=== PATIENT | female | born 1935 | race Caucasian/White ===

== ENCOUNTER 2023-06-04 15:24 | Inpatient (IN) | payer MEDICARE, SELFPAY ==
[2023-06-04] VITALS (26 sets, daily range): BP systolic 159–232; BP diastolic 73–117; PULSE 90–113; RESP 18–33; TEMP 36.8–36.9; O2SAT 90–100; BMI 15.0
--- NOTE | ~2023-06-04 | XR_ITS ---
EXAMINATION: XR chest 1V portable DATE: 06/08/2023 08:21 INDICATION: Shortness of breath TECHNIQUE: frontal view of the chest was obtained. COMPARISON: Chest radiograph and CT dated 06/04/2023 FINDINGS: Hyperexpansion of lungs consistent with emphysema better appreciated on prior CT . Increased intersti tial pattern with subtle peripheral Pal B-lines in the lower lung zones consistent with mild pulmo nary edema. Hazy opacities at the bilateral lung bases with blunted costophrenic angles consistent wi th small bilateral pleural effusions. There are few scattered small calcified pulmonary nodules consi stent with old granulomatous disease. No pneumothorax. The cardiomediastinal silhouette is normal. IMPRESSION: 1. Emphysema with superimposed mild pulmonary edema in the lower lungs and small bilateral pleural ef fusions. Reviewed, dictated and finalized at location A. IMPRESSION: 1. Emphysema with superimposed mild pulmonary edema in the lower lungs and smal l bilateral pleural effusions.
--- NOTE | ~2023-06-04 | XR_ITS ---
EXAMINATION: XR chest 1V portable DATE: 06/04/2023 16:37 INDICATION: Shortness of breath. TECHNIQUE: A single frontal view of the chest was obtained. COMPARISON: None. FINDINGS: Calcified pulmonary nodules and calcified hilar and mediastinal lymph nodes are consistent with old granulomatous disease. No pleural effusion or pneumothorax. The heart size is normal. IMPRESSION: 1. No acute cardiopulmonary disease. Reviewed, dictated and finalized at location E.
--- NOTE | ~2023-06-04 | CT_ITS ---
EXAMINATION: CT brain wo con DATE: 06/04/2023 20:45 INDICATION: Altered mental status. TECHNIQUE: Computed tomography (CT) of the head was performed without intravenous contrast. The mA wa s adjusted according to patient size. Iterative reconstruction technique was employed. The dose-lengt h product was 605.33 mGy-cm. COMPARISON: None FINDINGS: There are scattered areas of low attenuation in the cerebral white matter. There is no intr acranial hemorrhage, acute infarction, or abnormal intracranial mass lesion. The ventricles are dre l in size. There is mucosal thickening in right sphenoid sinus. There are likely changes of ocular le ns replacement surgeries. The mastoid air cells are normal. IMPRESSION: 1. Moderate nonspecific cerebral white matter disease, which likely represents chronic small vessel i schemic disease. Reviewed, dictated and finalized at location E. IMPRESSION: 1. Moderate nonspecific cerebral white matter disease, which likely represents chronic small vessel ischemic disease.
--- NOTE | ~2023-06-04 | CT_ITS ---
EXAMINATION: CTA chest PE protocol DATE: 06/04/2023 20:46 INDICATION: Shortness of breath. TECHNIQUE: Computed tomography angiography (CTA) of the chest was performed with 100 mL Omnipaque-350 intravenous contrast timed to evaluate the pulmonary arteries. Coronal maximum intensity projection 3D-reconstructions were created by the technologist. Automated exposure control and iterative reconst ruction technique were employed. The dose-length product was 156.00 mGy-cm. COMPARISON: None. FINDINGS: There is mild scarring at the lung apices. There is mild emphysema. There is mild atelectas is bilaterally. There are small bilateral posterior diaphragmatic hernias containing fat. Calcified p ulmonary nodules and calcified hilar and mediastinal lymph nodes are consistent with old granulomatou s disease. No pleural effusion. The heart size is normal. There are coronary artery calcifications. N o pericardial effusion. There is no pulmonary embolus. Aortic atherosclerosis is noted. There is mild thoracic spondylosis. There is mild chronic anterior wedging of 2 midthoracic vertebral bodies. IMPRESSION: 1. No pulmonary embolus. 2. Mild emphysema. Reviewed, dictated and finalized at location E.
[2023-06-04] MEDS: IPRATROPIUM BR 0.02% INH SOLN 0.5 MG/2.5 ML VIAL 1.5 MG INHALATION (16:23)
[2023-06-04] MEDS: LEVALBUTEROL NEB 1.25 MG/3 ML 3.75 MG INHALATION (16:23)
[2023-06-04 16:26] LABS: Basophils Percent Auto 0.3 % (0.2-1.2); Hematocrit 34.2 % (37.0-47.0); Hemoglobin 10.1 g/dL (12.0-15.0); Immature Granulocyte Absolute 0.03 K/mm3 (0.00-0.031); Immature Granulocyte Percent A 0.3 % (0-0.5); Lymphocytes Absolute Auto 1.18 K/mm3 (0.9-3.2); Lymphocytes Percent Auto 11.4 % (18.3-44.2); Mean Corpuscular HGB Conc 29.5 g/dl (32-36); Mean Corpuscular Hemoglobin 25.6 pg (26-34); Mean Corpuscular Volume 86.8 fl (80-100); Mean Platelet Volume 9.1 fl (7.4-10.4); Monocytes Absolute Auto 0.6 K/mm3 (0.1-0.6); Monocytes Percent Auto 6.1 % (2.6-8.5); Neutrophils Absolute Auto 8.5 K/mm3 (1.3-6.7); Neutrophils Percent Auto 81.9 % (45.5-73.1); Platelet Count Result 214 k/mm3 (150-375); Red Blood Count 3.94 M/mm3 (4.2-5.4); Red Cell Distribution Width 14.6 % (11.5-14.5); White Blood Count 10.4 K/mm3 (4.5-10.0)
[2023-06-04 16:37] LABS: Alanine Aminotransferase 12 U/L (6-35); Albumin Level 3.8 g/dL (3.5-5.1); Alkaline Phosphatase 159 U/L (38-126); Anion Gap 4 mmol/L (4-12); Aspartate Amino Transferase 25 U/L (14-36); Bilirubin,Total 0.7 mg/dL (0.2-1.3); Blood Urea Nitrogen 24 mg/dL (7-17); Calcium 10.4 mg/dL (8.4-10.2); Carbon Dioxide 39 mmol/L (22-30); Chloride 100 mmol/L (98-107); Estimated CRCL calculation 34 ml/min; Estimated Glomerular Filt Rate > 60; Glucose 222 mg/dL (65-110); Potassium 3.7 mmol/L (3.4-5.0); Sodium 143 mmol/L (137-145)
[2023-06-04 16:52] LABS: Platelet Estimate Adequate (Adequate)
[2023-06-04 16:53] LABS: Hypochromasia 1+; Schistocytes None Seen
[2023-06-04 16:54] LABS: Anisocytosis 1+
[2023-06-04 17:02] LABS: Influenza A QL RT-PCR Negative (Negative); Influenza B QL RT-PCR Negative (Negative); RSV RNA, RT-PCR Negative (Negative); SARS-CoV-2 RNA PCR Negative (Negative)
[2023-06-04 17:05] LABS: NT Pro B Type Natriuretic Pept 8110 pg/mL (19.9-100); Troponin I 0.037 ng/mL (0.000-0.034)
--- NOTE | 2023-06-04 18:05 | ED.SOB ---
HPI - SOB/Dyspnea General Chief Complaint: Shortness of Breath/Dyspnea <Stacy Boudreaux MD - Last Filed: 06/05/23 07:37> Stated Complaint: DYSPNEA <Stacy Boudreaux MD - Last Filed: 06/05/23 07:37> Time Seen by Provider: 06/04/23 15:51 <Stacy Boudreaux MD - Last Filed: 06/05/23 07:37> History of Present Illness HPI Narrative: Patient is an 87-year-old female with history of COPD, a recent hip fracture repaired at outside hospital approximately 3 weeks ago currently living at a rehab facility sent in here for shortness of breath. Family notes she has a history of COPD. She was initially not on any oxygen prior to her hospitalization however since discharge to rehab facility she has been on supplemental oxygen. Family notes worsening shortness of breath over the last few days developing a productive cough today. She has been receiving nebulizer treatments from her facility without improvement. Patient is more confused than baseline per family. They note that she was slow to respond and appeared to be hallucinating. <Stacy Boudreaux MD - Last Filed: 06/05/23 07:37> Related Data Home Medications: Home Medications Medication Instructions Recorded Confirmed acetaminophen 325 mg tablet 650 mg PO Q4H PRN Pain 06/04/23 06/04/23 calcium carbonate 500 mg-vitamin 1 tablet PO TID 06/04/23 06/05/23 D3 5 mcg (200 unit) tablet docusate sodium 100 mg capsule 100 mg PO DAILY 06/04/23 06/04/23 famotidine 20 mg tablet 10 mg PO DAILY 06/04/23 06/04/23 ferrous sulfate 325 mg (65 mg 325 mg PO BID 06/04/23 06/04/23 iron) tablet ipratropium 0.5 mg-albuterol 3 mg 3 ml inhalation Q6H 06/04/23 06/04/23 (2.5 mg base)/3 mL nebulization soln ipratropium bromide 42 mcg (0.06 2 spray intranasal BID 06/04/23 06/04/23 %) nasal spray lisinopril 40 mg tablet 40 mg PO DAILY 06/04/23 06/04/23 loratadine 10 mg tablet 10 mg PO DAILY 06/04/23 06/05/23 montelukast 10 mg tablet 10 mg PO DAILY 06/04/23 06/05/23 hfbuoset-fam-YZ 200 mcg-vit K 100 1 cap PO DAILY 06/04/23 06/05/23 mcg-lycop 500 [id number] capsule (Daily Multivitamin) nicotine 14 mg/24 hr daily 1 patch transdermal DAILY 06/04/23 06/05/23 transdermal patch ondansetron 4 mg disintegrating 4 mg PO Q8H PRN Nausea And Vomiting 06/04/23 06/05/23 tablet pravastatin 10 mg tablet 10 mg PO DAILY 06/04/23 06/05/23 sertraline 100 mg tablet 100 mg PO DAILY 06/04/23 06/05/23 ascorbic acid (vitamin C) 500 mg 1,000 mg PO DAILY 06/05/23 06/05/23 tablet budesonide 0.5 mg/2 mL suspension 0.5 mg inhalation BID 06/05/23 06/05/23 for nebulization (Pulmicort) <Stacy Boudreaux MD - Last Filed: 06/05/23 07:37> Allergies/Adverse Reactions: Allergies Allergy/AdvReac Type Severity Reaction Status Date / Time Penicillins Allergy Unknown Verified 06/05/23 03:29 <Stacy Boudreaux MD - Last Filed: 06/05/23 07:37> Review of Systems Review of Systems: ROS unobtainable: Yes unobtainable due to mental status <Stacy Boudreaux MD - Last Filed: 06/05/23 07:37> PMFSH Past Medical History Medical History: Medical History (Updated 06/05/23 @ 07:37 by Stacy Boudreaux MD) COPD (chronic obstructive pulmonary disease) Essential hypertension MDD (major depressive disorder) Vitamin D deficiency <Stacy Boudreaux MD - Last Filed: 06/05/23 07:37> Surgical History Surgical History: Surgical History (Updated 06/05/23 @ 01:22 by Vero Parikh DO) History of total right hip replacement Following fracture <Stacy Boudreaux MD - Last Filed: 06/05/23 07:37> Family History Family History: Family History Other Unknown family medical history <Stacy Boudreaux MD - Last Filed: 04/14/24 07:37> Social History Social History: Social History Smoking status: Smoker, status unknown Alcohol intake: never Substance use: never Substance use type: does not use Do You Feel Safe in your Home?: Yes Lack of Transporta
[2023-06-04] MEDS: NITROGLYCERIN SL 0.4 MG TABLET SUBLINGUAL (18:36)
[2023-06-04] MEDS: methylPREDNISolone SOD SUCC 125 MG VIAL IV PUSH (18:47)
[2023-06-04 18:52] LABS: Add Urine Microscopic? YES; Appearance Urine Cloudy (Clear); Bacteria Urine 4+ /hpf; Bilirubin Urine Negative (Negative); Blood Urine Negative (Negative); Calcium Oxalate Crystals Urine Present /hpf; Color Urine Dark Yellow (Yellow); Glucose Urine UA Negative (Negative); Hyaline Casts Urine Present /lpf; Ketones Urine 1+ mg/dL (Negative); Leukocyte Esterase Ur 2+ LEU/UL (Negative); Mucus Urine Present /lpf; Need Manual Microscopic Reviewed; Nitrate Urine Negative (Negative); Non Pathogenic Casts >20; Protein Urine 2+ mg/dL (Negative); RBC Urine 0-2 /hpf (0-2); Specific Grav Ur 1.019 (1.001-1.035); Squamous Epithelial Cell Urine Moderate /hpf (Few); WBC Urine 51-100 /hpf (0-3); pH Urine 5.5 (5.0-9.0)
[2023-06-04 19:05] LABS: Lactic Acid Reflex 1.4 mmol/L (0.7-2.0)
[2023-06-04 19:13] LABS: Fractional Inspired Oxygen 60 %; HCO3 VBG 35.4 mEq/l (24.0-30.0); PCO2 VBG 56.2 mmHg (42.0-48.0); PO2 VBG 156.5 mmHg (35.0-45.0)
[2023-06-04 19:16] LABS: Device HIGH FLOW NASAL CANN; pH VBG 7.417 (7.300-7.400)
--- NOTE | 2023-06-04 19:18 | PC.NURSE ---
this rn assumed care of patient. this rn took patient report from BUD Howard.
[2023-06-04] MEDS: CEFEPIME 2 GM/NS 50 ML 2 GM/50 ML BAG IVPB (19:41)
[2023-06-04 20:00] LABS: Troponin I 0.036 ng/mL (0.000-0.034)
[2023-06-04] MEDS: AZITHROMYCIN 500 MG/NS 250 ML 500 MG/250 ML BAG 250 MG IVPB (20:20)
[2023-06-04 20:40] LABS: MRSA (PCR) NOT DETECTED (NOT DETECTE)
[2023-06-04] MEDS: VANCOMYCIN 1,250 MG/NS 250 ML 1,250 MG/250 ML BAG 166.67 MG IVPB (21:39)
[2023-06-04] MEDS: hydrALAZINE HCL 20 MG/ML VIAL 10 MG IV PUSH (21:54)
--- NOTE | 2023-06-04 23:06 | ADMGEN ---
This patient, Raaht Nj, was admitted to IMU Room 206-02 on 06/04/23 at 2251. Patient/family oriented to hospital policies and general routines including ID bracelet, bed and alarms, visiting hours, pain management, procedures, bathroom and other care routines, personal items, smoking policy, room service/diet, and visiting hours. Information on how to activate the Rapid Response Team has been discussed. Patient/Family are encouraged to report perceived risks to care and to ask questions if they do not understand what they are told or what they should do.
--- NOTE | 2023-06-04 23:55 | PM.IMHP ---
H&P: HPI History of Present Illness Date/Time: 06/04/23 23:40 Chief Complaint: Difficulty breathing Narrative: Source of information: ER records and group home records. The patient is oriented to name only in is unable to provide any meaningful supplemental review of systems.According to group home documentation there is no history of heart failure. Nursing staff reported that the male family member listed as contact in the patient's chart could not provide any significant history. The patient's female family member that was with her in the ER left hospital when the patient was admitted and I was not able to find contact information to obtain more history. 87-year-old female with past medical history recent hip replacement COPD, hyperlipidemia, depression and dementia who presented to the ER from [facility] via EMS due to difficulty breathing. The patient was noted to have increased work of breathing by group home staff. Family reported the patient had began having increased cough the day before. Patient's oxygen saturations were 88 89% on room air. Patient has been placed on 4 L nasal cannula in the field but had increasing oxygen requirement up to 7 L in the ER. Patient was reportedly alert orient x3 in the ER but slow to respond. At the time my evaluation the patient would tell me her last name but would not provide any answers to other orientation questions. When I tried to evaluate the patient's pupils she would close dry eyes tightly. She seemed to be having trouble staying awake during evaluation. She did not respond verbally to me for the remainder of exam but did squeeze my hands and stick her tongue out to command. The patient's blood pressures were noted to be markedly elevated in the ER ranging between 180-220 systolic. Which ER felt was due to patient's respiratory status. The patient was treated with IV Solu-Medrol and nebulizer treatment as well as empiric antibiotic therapy with cefepime vanc and azithromycin. However patient was not noted to have significant leukocytosis and chest x-ray did not demonstrate any acute cardiopulmonary process. Given the patient's significant oxygen requirement I did request CTA which was negative for pulmonary embolism and was significant for emphysematous changes (imaging personally reviewed). CT of the head was performed due to patient's somnolence and demonstrated no acute process. Patient was intermittently tachycardic in the ER but EKG demonstrated normal sinus rhythm with sinus arrhythmia in evidence of left atrial enlargement and left ventricular hypertrophy. Patient only had a small amount of urine output on admission to the intermediate unit. Bladder scan was performed which demonstrated no evidence of retention. Patient has a pure wick catheter in place. The patient does have a mention of ?cognitive impairment affecting communication? in the group home records. This leads me to believe patient either has some dementia or mild cognitive impairment history at baseline. The patient was recently hospitalized for hip replacement and is currently [facility] for rehab. Review of Systems Review of Systems: ROS unobtainable: Yes unobtainable due to mental status PMFSH Past Medical History Medical History (Updated 06/05/23 @ 01:32 by Vero Parikh DO) COPD (chronic obstructive pulmonary disease) Essential hypertension MDD (major depressive disorder) Vitamin D deficiency Surgical History Surgical History (Updated 06/05/23 @ 01:22 by Vero Parikh DO) History of total right hip replacement Following fracture Family History Family History (Updated 06/05/23 @ 01:23 by Vero Parikh DO) Other Unknown family medical history Social History Social History Smoking status: Former smoker Meds Home Medications and Allergies Home Medications Medication Instructions Recorded Confirmed Type acetaminophen 325 mg tablet 650 mg PO Q4
[2023-06-05] VITALS (34 sets, daily range): BP systolic 106–206; BP diastolic 48–92; PULSE 69–94; RESP 12–24; TEMP 36.6–36.9; O2SAT 90–100
[2023-06-05] MEDS: METOPROLOL TARTRATE INJ 5 MG/5 ML VIAL IV PUSH ×3 (00:57→15:43)
[2023-06-05] MEDS: IPRATROPIUM 0.5 MG/ALBUTEROL SULFATE 2.5 MG AMPUL.NEB 3 ML INHALATION ×4 (02:12→20:19)
[2023-06-05 04:09] LABS: Glucose Point of Care 195 mg/dl (65-105)
[2023-06-05] MEDS: SODIUM CHLORIDE 0.9% IV 1,000 ML 75 ML IV CONT ×2 (04:12→17:50)
[2023-06-05 05:11] LABS: Hemoglobin 9.1 g/dL (12.0-15.0); Mean Corpuscular HGB Conc 28.4 g/dl (32-36); Mean Corpuscular Volume 87.9 fl (80-100); Mean Platelet Volume 9.3 fl (7.4-10.4); Platelet Count Result 215 k/mm3 (150-375); Red Blood Count 3.64 M/mm3 (4.2-5.4); Red Cell Distribution Width 14.7 % (11.5-14.5); White Blood Count 10.1 K/mm3 (4.5-10.0)
[2023-06-05 05:22] LABS: Hemoglobin A1C 5.2 % (<5.7)
[2023-06-05 05:32] LABS: Anion Gap 3 mmol/L (4-12); Blood Urea Nitrogen 24 mg/dL (7-17); Calcium 10.1 mg/dL (8.4-10.2); Carbon Dioxide 39 mmol/L (22-30); Chloride 102 mmol/L (98-107); Estimated CRCL calculation 30 ml/min; Estimated Glomerular Filt Rate > 60; Glucose 180 mg/dL (65-110); Sodium 144 mmol/L (137-145)
[2023-06-05 05:47] LABS: Potassium 3.8 mmol/L (3.4-5.0)
[2023-06-05] MEDS: methylPREDNISolone SOD SUCC 125 MG VIAL 40 MG IV PUSH ×3 (06:49→22:21)
[2023-06-05 07:05] LABS: Glucose Point of Care 155 mg/dl (65-105)
[2023-06-05] MEDS: FAMOTIDINE 20 MG/2 ML VIAL IV PUSH ×2 (08:13→20:14)
[2023-06-05] MEDS: NICOTINE (*PBKC) 14 MG PATCH 1 PATCH TRANSDERM (08:13)
[2023-06-05] MEDS: BUDESONIDE RESPULE NEB 0.5 MG/2 ML AMP INHALATION ×2 (08:45→20:19)
--- NOTE | 2023-06-05 09:23 | PM.IMPN ---
Progress Note: A&P Assessment and Plan (1) Acute hypoxic respiratory failure: Code(s): J96.01 - Acute respiratory failure with hypoxia Status: Acute Assessment and Plan: Plan is to continue current treatment with antibiotics and oxygen. Monitor closely. It cultures pending (2) Acute exacerbation of chronic obstructive pulmonary disease: Code(s): J44.1 - Chronic obstructive pulmonary disease with (acute) exacerbation Status: Acute Assessment and Plan: Continue with steroids and antibiotics. (3) Abnormal finding on urinalysis: Code(s): R82.90 - Unspecified abnormal findings in urine Status: Acute Assessment and Plan: Urine culture pending. Will continue with IV antibiotics. (4) Altered mental status: Qualifiers: Altered mental status type: somnolence Qualified Code(s): R40.0 - Somnolence Code(s): R41.82 - Altered mental status, unspecified Status: Acute Assessment and Plan: Most likely multifactorial and infection is the cause. Plan is to continue current treatment and monitor culture. (5) Uncontrolled hypertension: Code(s): I10 - Essential (primary) hypertension Status: Acute Assessment and Plan: Stable on current medications, will continue current treat (6) Hyperglycemia: Code(s): R73.9 - Hyperglycemia, unspecified Status: Acute Assessment and Plan: Stable on current medications, will continue current treat (7) Hypercalcemia: Code(s): E83.52 - Hypercalcemia Status: Acute Assessment and Plan: Repeat CMP in the morning monitor closely. (8) Protein-calorie malnutrition, severe: Code(s): E43 - Unspecified severe protein-calorie malnutrition Status: Acute Assessment and Plan: Patient is scheduled for swallow study in the morning. Plan Patient has acute hypoxic respiratory failure due to acute COPD exacerbation. I have started the patient on scheduled nebulizer treatments. I requested patient receive Solu-Medrol in the ER and Solu-Medrol vanc continue 40 mg IV q.8 hours. Will wean oxygen as tolerated maintaining O2 sats between 88 92% given patient's likely underlying COPD. VBG results were reviewed and patient did have elevated PO2 on VBG so certainly area there is probably room to wean oxygen. Consider repeat ABG VBG in a.m. depending on clinical condition. Patient's code status was confirmed by ER provider and the patient DNR/DNI. Patient was initially given broad-spectrum antibiotic coverage for due to the water server possible pneumonia but pneumonia rolled out on CTA. Will continue patient on Rocephin to start in a.m. for empiric coverage for possible UTI. Patient's urine is abnormal with 2+ esterase 51-100 wbc's and 4+ bacteria but has many squamous cells. Will await urine culture results. Blood cultures are also pending. Patient did meet SIRS criteria with tachycardia, tachypnea initially but these have resolved. Will repeat CBC and electrolyte panel in a.m.. Patient is altered with somnolence. Likely due to above factors. No evidence of CO2 retention currently. May consider repeat ABG if mentation does not improve or worsens. Patient does appear clinically dehydrated with extremely dry mucous membranes. Will place patient on gentle IV fluid hydration and monitor fluid status closely. Patient does have an elevated BNP but does not appear to be intervascular volume overload. Will check echocardiogram to rule out some component of patient's hypoxia be being due to cardiogenic cause. But again heart failure less likely given imaging results. Patient did have minimally elevated troponin but troponin profile was completely flat and not indicative of acute ischemia. Troponin may have been elevated in part due to the patient's uncontrolled hypertension. Patient received hydralazine in the ER with only minimal improvement in blood pressure. One dose of IV Lopressor w
[2023-06-05] MEDS: hydrALAZINE HCL 20 MG/ML VIAL 10 MG IV PUSH (09:27)
[2023-06-05] MEDS: lisinopriL 20 MG TABLET 40 MG PO (10:45)
[2023-06-05] MEDS: LORATADINE 10 MG TABLET PO (10:45)
[2023-06-05] MEDS: MONTELUKAST SODIUM 10 MG TABLET PO (10:46)
[2023-06-05] MEDS: IPRATROPIUM NASAL SPRAY 0.06% 15 ML BOTTLE 2 SPRAY NASAL ×2 (10:46→20:16)
--- NOTE | 2023-06-05 10:55 | PC.NURSE ---
Verified Zoloft dose with Susan López from [facility].
[2023-06-05 11:50] LABS: Glucose Point of Care 160 mg/dl (65-105)
--- NOTE | 2023-06-05 11:53 | PCSTNOTE ---
Bedside swallowing evaluation. Patient seen bedside with head of bed elevated to achieve upright positioning. Patient had difficulty answering yes/no questions and was minimally verbal. Unable to follow directions consistently. Trials of thin liquid by straw and cup in uncontrolled amounts were within normal limits, no coughing or choking observed. Pureed consistency by spoon was also within normal limits. Solid bolus by spoon resulted in continuous chewing pattern without swallowing. Per nurse, patient attempts to chew pills when given in yogurt. Recommendations: Pureed diet with thin liquids. Swallowing precaution recommendations include: crush pills and place in yogurt or similar consistency (applesauce, pudding) and give by spoon. Pureed diet with thin liquids. Straws ok. Position patient upright when eating or drinking and for 20-30 minutes afterwards. No further speech therapy is recommended. Thank you for the referral of this patient.
[2023-06-05] MEDS: SERTRALINE HCL 50 MG TABLET 100 MG PO (11:54)
[2023-06-05 20:33] LABS: Glucose Point of Care 151 mg/dl (65-105)
[2023-06-06] VITALS (33 sets, daily range): BP systolic 139–196; BP diastolic 54–103; PULSE 69–94; RESP 16–24; TEMP 36.3–37.7; O2SAT 87–100; BMI 17.9
--- NOTE | 2023-06-06 | ECHO_ITS ---
Patient Info Name: Rahat Nj Age: 87 years : 1935 Gender: Female Ht: 64 in Wt: 104 lbs BSA: 1.45 m2 HR: 76 bpm BP: 166 / 65 mmHg Heart Rhythm: Sinus Rhythm Technical Quality: Fair Exam Date: 06/06/2023 10:05 AM Exam Location: Echo Lab Patient Status: Inpatient Admit Date: 06/04/2023 Staff Ordering Physician: Vero Parikh DO Carbonation Equipment Operator: Puja Farah RDCS Attending Provider: Vero Parikh DO Referring Physician: Jl CRAIG; Exam Type: CA echo doppler color flow Study Info Indications - ELEVATED TROPONIN, HYPOXIA Complete two-dimensional, color flow and Doppler transthoracic echocardiogram is performed. Summary 1. Complete two-dimensional, color flow and Doppler transthoracic echocardiogram is performed. 2. Left ventricular chamber dimension is normal. 3. Left ventricular systolic function is normal, estimated at 65-70%. 4. The left ventricular diastolic function is grade I diastolic dysfunction. 5. E/e' 14 is mildly elevated. 6. There is mild aortic valve sclerosis. 7. There is trace tricuspid valve regurgitation. 8. No pulmonary hypertension, estimated pulmonary arterial systolic pressure is 37 mmHg. Left Ventricle E/e' 14 is mildly elevated. Left ventricular chamber dimension is normal. Left ventricular systolic function is normal, estimated at 65-70%. The left ventricular diastolic function is grade I diastolic dysfunction. Right Ventricle Right ventricular systolic function is normal and with normal TAPSE 2.3 cm. Right ventricular chamber dimension is normal. Left Atria Left atrial chamber dimension is normal. Right Atria Right atrial chamber dimension is normal. Aortic Valve The aortic valve is trileaflet. There is mild aortic valve sclerosis. There is no aortic valve stenosis. There is no aortic valve regurgitation. Pulmonic Valve There is no pulmonic regurgitation. Mitral Valve There is no mitral valve stenosis. There is no mitral valve regurgitation. Tricuspid Valve There is trace tricuspid valve regurgitation. No pulmonary hypertension, estimated pulmonary arterial systolic pressure is 37 mmHg. Pericardium/Pleural There is no pericardial effusion. Inferior Vena Cava Normal inferior vena cava with >50% collapse upon inspiration consistent with normal right atrial pressure, 5 mmHg. Aorta The aortic root size at the sinus of Valsalva is normal. Left Ventricular Outflow Tract Name Value Normal LVOT 2D LVOT Diameter 2.0 cm LVOT Doppler LVOT Peak Gradient 5 mmHg LVOT Mean Gradient 2 mmHg LVOT VTI 25 cm LVOT VTI/AV VTI Ratio 0.9 LVOT Stroke Volume 74 ml LVOT CO 5.5 l/min LVOT CI 3.8 l/min/m2 Pulmonic Valve Name Value Normal RVOT Doppler RVOT Peak Gradient
[2023-06-06] MEDS: hydrALAZINE HCL 20 MG/ML VIAL 10 MG IV PUSH (00:24)
[2023-06-06] MEDS: METOPROLOL TARTRATE INJ 5 MG/5 ML VIAL IV PUSH (01:13)
[2023-06-06] MEDS: IPRATROPIUM 0.5 MG/ALBUTEROL SULFATE 2.5 MG AMPUL.NEB 3 ML INHALATION ×4 (02:23→20:52)
[2023-06-06 04:19] LABS: Hematocrit 32.2 % (37.0-47.0); Hemoglobin 9.1 g/dL (12.0-15.0); Mean Corpuscular HGB Conc 28.3 g/dl (32-36); Mean Corpuscular Hemoglobin 25.4 pg (26-34); Mean Corpuscular Volume 89.9 fl (80-100); Mean Platelet Volume 9.2 fl (7.4-10.4); Platelet Count Result 231 k/mm3 (150-375); Red Blood Count 3.58 M/mm3 (4.2-5.4); White Blood Count 11.2 K/mm3 (4.5-10.0)
[2023-06-06 04:34] LABS: Alanine Aminotransferase 14 U/L (6-35); Albumin Level 3.4 g/dL (3.5-5.1); Alkaline Phosphatase 135 U/L (38-126); Anion Gap 2 mmol/L (4-12); Aspartate Amino Transferase 32 U/L (14-36); Bilirubin,Total 0.5 mg/dL (0.2-1.3); Blood Urea Nitrogen 29 mg/dL (7-17); Calcium 9.3 mg/dL (8.4-10.2); Carbon Dioxide 35 mmol/L (22-30); Chloride 108 mmol/L (98-107); Estimated CRCL calculation 48 ml/min; Estimated Glomerular Filt Rate > 60; Glucose 157 mg/dL (65-110); Potassium 3.2 mmol/L (3.4-5.0); Sodium 145 mmol/L (137-145)
[2023-06-06 04:45] LABS: Troponin I 0.022 ng/mL (0.000-0.034)
[2023-06-06] MEDS: methylPREDNISolone SOD SUCC 125 MG VIAL 40 MG IV PUSH (05:17)
[2023-06-06 05:49] LABS: Glucose Point of Care 162 mg/dl (65-105)
[2023-06-06] MEDS: SODIUM CHLORIDE 0.9% IV 1,000 ML 75 ML IV CONT (06:26)
[2023-06-06] MEDS: BUDESONIDE RESPULE NEB 0.5 MG/2 ML AMP INHALATION ×2 (07:43→20:52)
[2023-06-06 08:17] LABS: Glucose Point of Care 151 mg/dl (65-105)
--- NOTE | 2023-06-06 10:51 | PM.IMPN ---
Progress Note: A&P Assessment and Plan (1) Acute hypoxic respiratory failure: Code(s): J96.01 - Acute respiratory failure with hypoxia Status: Acute (2) Acute exacerbation of chronic obstructive pulmonary disease: Code(s): J44.1 - Chronic obstructive pulmonary disease with (acute) exacerbation Status: Acute (3) Abnormal finding on urinalysis: Code(s): R82.90 - Unspecified abnormal findings in urine Status: Acute (4) Altered mental status: Qualifiers: Altered mental status type: somnolence Qualified Code(s): R40.0 - Somnolence Code(s): R41.82 - Altered mental status, unspecified Status: Acute (5) Uncontrolled hypertension: Code(s): I10 - Essential (primary) hypertension Status: Acute (6) Hyperglycemia: Code(s): R73.9 - Hyperglycemia, unspecified Status: Acute (7) Hypercalcemia: Code(s): E83.52 - Hypercalcemia Status: Acute (8) Protein-calorie malnutrition, severe: Code(s): E43 - Unspecified severe protein-calorie malnutrition Status: Acute Plan 87-year-old female with history of COPD recent hip fracture repaired at outside hospital approximately 3 weeks ago currently at the rehab facility presented to the ER with shortness of breath. She was not on oxygen prior to her hip repair however since discharged to her rehab facility she has been on supplemental oxygen. Family noted continued sling of the shortness of breath over the past few days with productive cough. She was receiving nebulizer treatment in our facility without improvement patient started to get more confused from her baseline appear to be hallucinating and hence present to the ED for further treatment. Patient desaturated to prior to EMS arrival. Laboratory workup in the ER showed white cell count of 10.4 hemoglobin stable at 10.1 electrolytes and creatinine were within normal limit. BNP was elevated at 8110. Troponin mildly elevated 0.037. COVID influenza RSV was negative. Chest x-ray was negative for acute process. She required high-flow oxygen via nasal cannula in the ER. CTA of the chest was done which was negative for PE or any other acute process. She had evidence of UTI. Nasal MRSA PCR was negative. Lactate was normal at 1.4. VBG 7.41/56/156/35. Acute hypoxic respiratory failure likely due to COPD exacerbation on scheduled breathing treatment and was started on Solu Medrol. Oxygen requirement has continued to improve since hospitalization. Will switch Solu Medrol to oral. Will discontinue vancomycin IV as nasal MRSA is negative. Will stop IV fluids UTI and drip empirically treated with Rocephin. Urine culture pending growing oxidase negative g negative bacillus. Altered mental status no evidence of CO2 retention. IV hydration started. Does have elevated BNP does not appear to be volume overload. Echocardiogram pending Troponin elevation mild with flat trend. Hypertension accelerated on p.r.n. antihypertensive. Takes lisinopril at home which she is currently on. Hydralazine p.r.n.. Add amlodipine Mildly hyperglycemic on presentation she was 5.2 Mild anemia likely postoperative no signs of bleeding Hypokalemia replace and monitor Protein calorie mild nutrition regional transportation manager to see Code status: DNR/DNI per ER documentation Subjective Date/time seen: 06/06/23 10:51 Interval history: Chart reviewed. Discussed with the family. per family she is looking better , was altered and hypoxic remains on 2 L oxygen via nasal cannula. She is breathing much easier now. Review of Systems Review of Systems: All systems reviewed & are unremarkable except as noted in HPI and below Exam Narrative: GENERAL:? Ill-appearing, cachectic, no respiratory distress HEAD: Normocephalic, atraumatic. EYES: PERRLA and EOMI. ENT: Nares clear.? Mucous membranes dry NECK: Supple. CHEST:? Decreased air movement bilaterally, coarse breath sound mild wheezes
[2023-06-06] MEDS: MONTELUKAST SODIUM 10 MG TABLET PO (10:52)
[2023-06-06] MEDS: FAMOTIDINE 20 MG/2 ML VIAL IV PUSH ×2 (10:52→21:44)
[2023-06-06] MEDS: SERTRALINE HCL 50 MG TABLET 100 MG PO (10:52)
[2023-06-06] MEDS: lisinopriL 20 MG TABLET 40 MG PO (10:52)
[2023-06-06] MEDS: ENOXAPARIN 40 MG/0.4 ML SYRINGE SUB-Q (10:52)
[2023-06-06] MEDS: LORATADINE 10 MG TABLET PO (10:52)
[2023-06-06] MEDS: NICOTINE (*PBKC) 14 MG PATCH 1 PATCH TRANSDERM (10:52)
[2023-06-06] MEDS: IPRATROPIUM NASAL SPRAY 0.06% 15 ML BOTTLE 2 SPRAY NASAL ×2 (10:53→21:44)
[2023-06-06] MEDS: VANCOMYCIN 1,000 MG/NS 250 ML 1,000 MG/250 ML BAG 250 MG IVPB (11:13)
[2023-06-06 11:58] LABS: Glucose Point of Care 174 mg/dl (65-105)
[2023-06-06] MEDS: amLODIPine BESYLATE 5 MG TABLET PO (12:48)
[2023-06-06] MEDS: ONDANSETRON INJ 4 MG/2 ML VIAL IV PUSH (12:56)
--- NOTE | 2023-06-06 15:54 | ECG_ITS ---
SEE SCANNED COPY FOR CONFIRMED REPORT MTDD
[2023-06-06 16:29] LABS: Glucose Point of Care 148 mg/dl (65-105)
[2023-06-06 20:40] LABS: Glucose Point of Care 138 mg/dl (65-105)
[2023-06-07] VITALS (27 sets, daily range): BP systolic 138–167; BP diastolic 52–69; PULSE 60–82; RESP 15–20; TEMP 36.1–36.8; O2SAT 92–100
[2023-06-07 05:08] LABS: Hematocrit 28.6 % (37.0-47.0); Hemoglobin 7.9 g/dL (12.0-15.0); Mean Corpuscular HGB Conc 27.6 g/dl (32-36); Mean Corpuscular Hemoglobin 25.5 pg (26-34); Mean Corpuscular Volume 92.3 fl (80-100); Mean Platelet Volume 8.9 fl (7.4-10.4); Platelet Count Result 185 k/mm3 (150-375); Red Cell Distribution Width 15.1 % (11.5-14.5); White Blood Count 9.4 K/mm3 (4.5-10.0)
[2023-06-07 05:23] LABS: Alanine Aminotransferase 11 U/L (6-35); Albumin Level 2.9 g/dL (3.5-5.1); Alkaline Phosphatase 103 U/L (38-126); Anion Gap 2 mmol/L (4-12); Aspartate Amino Transferase 23 U/L (14-36); Bilirubin,Total 0.3 mg/dL (0.2-1.3); Blood Urea Nitrogen 33 mg/dL (7-17); Calcium 8.8 mg/dL (8.4-10.2); Carbon Dioxide 35 mmol/L (22-30); Chloride 110 mmol/L (98-107); Estimated CRCL calculation 32 ml/min; Estimated Glomerular Filt Rate > 60; Glucose 98 mg/dL (65-110); Magnesium 2.2 mg/dL (1.6-2.3); Potassium 3.5 mmol/L (3.4-5.0); Sodium 147 mmol/L (137-145)
[2023-06-07 05:56] LABS: Anisocytosis 1+; Band Neutrophils Percent 2 % (0-6); Lymphocytes Absolute Manual 1.59 K/mm3 (1.1-4.5); Metamyelocytes Percent 1 %; Monocytes Absolute Manual 0.37 K/mm3 (0.1-0.90); Monocytes Percent Manual 4 % (3-9); Neutrophils Absolute Manual 7.33 K/mm3 (1.7-7.2); Neutrophils Percent Manual 76 % (46-73); Ovalocytes 1+; Platelet Estimate Adequate (Adequate); Schistocytes None Seen; Total Cells Counted 100
[2023-06-07] MEDS: IPRATROPIUM 0.5 MG/ALBUTEROL SULFATE 2.5 MG AMPUL.NEB 3 ML INHALATION ×3 (07:53→19:58)
[2023-06-07] MEDS: BUDESONIDE RESPULE NEB 0.5 MG/2 ML AMP INHALATION ×2 (07:53→19:58)
[2023-06-07 09:01] LABS: Glucose Point of Care 106 mg/dl (65-105)
[2023-06-07] MEDS: ENOXAPARIN 40 MG/0.4 ML SYRINGE SUB-Q (09:30)
[2023-06-07] MEDS: MONTELUKAST SODIUM 10 MG TABLET PO (09:37)
[2023-06-07] MEDS: SERTRALINE HCL 50 MG TABLET 100 MG PO (09:37)
[2023-06-07] MEDS: lisinopriL 20 MG TABLET 40 MG PO (09:37)
[2023-06-07] MEDS: LORATADINE 10 MG TABLET PO (09:37)
[2023-06-07] MEDS: amLODIPine BESYLATE 5 MG TABLET PO (09:37)
[2023-06-07] MEDS: FAMOTIDINE 20 MG/2 ML VIAL IV PUSH ×2 (09:38→20:34)
[2023-06-07] MEDS: NICOTINE (*PBKC) 14 MG PATCH 1 PATCH TRANSDERM (09:38)
[2023-06-07] MEDS: IPRATROPIUM NASAL SPRAY 0.06% 15 ML BOTTLE 2 SPRAY NASAL ×2 (09:38→20:34)
[2023-06-07 11:52] LABS: Glucose Point of Care 145 mg/dl (65-105)
--- NOTE | 2023-06-07 14:31 | P.PNIM_ITS ---
Progress Note: A&P Assessment and Plan (1) Acute hypoxic respiratory failure: Code(s): J96.01 - Acute respiratory failure with hypoxia Status: Acute Assessment and Plan: 06/07/2023: * Patient found with an oxygen saturation 88 and 89% on room air, EMS put her on 4 L nasal cannula and by the time she reached the emergency room they increased her to 7 L nasal cannula. * Chest x-ray was negative * CTA of the chest was negative for PE, showed mild emphysema * Echo showing normal LV systolic function with an estimated EF of 65-70%, grade 1 diastolic dysfunction. (2) Acute UTI: Code(s): N39.0 - Urinary tract infection, site not specified Status: Acute Assessment and Plan: 06/07/2023: * UA showed 2+ protein, 1+ ketone, 2+ leukocyte, 51 to 100 urine WBCs, 4+ urine bacteria * Urine culture showing E coli on final read * Patient currently on Rocephin (3) Altered mental status: Qualifiers: Altered mental status type: somnolence Qualified Code(s): R40.0 - Somnolence Code(s): R41.82 - Altered mental status, unspecified Status: Acute Assessment and Plan: 06/07/2023: * Head CT was negative for any acute intracranial finding, showed age related changes * Altered mental status likely due to acute UTI * Sodium level today is 147, no episodes of hypoglycemia, no CO2 retention on ABG * Continue neuro checks (4) Acute exacerbation of chronic obstructive pulmonary disease: Code(s): J44.1 - Chronic obstructive pulmonary disease with (acute) exacerbation Status: Chronic Assessment and Plan: 06/07/2023: * CTA of the chest showing mild emphysema * DuoNeb ordered * Continue budesonide * Continue Claritin, singular, Flonase (5) Uncontrolled hypertension: Code(s): I10 - Essential (primary) hypertension Status: Chronic Assessment and Plan: 06/07/2023: * Initial blood pressure ranging 199/94 to 232/110 * Blood pressure ranging 144/52 to 166/69 * amlodipine and lisinopril restarted, will increase amlodipine to 10 mg daily * Metoprolol 5 mg IV push q.6 hours p.r.n. discontinued * Will start hydralazine 10 mg IV push q.8 hours p.r.n. for systolic greater than 160 (6) Hyperglycemia: Code(s): R73.9 - Hyperglycemia, unspecified Status: Acute Assessment and Plan: 06/07/2023: * Blood sugars ranging 106 -140 * Resolved (7) Hypercalcemia: Code(s): E83.52 - Hypercalcemia Status: Acute Assessment and Plan: 06/07/2023: * Calcium level initially 10.4 now down to 8.8 * Resolved (8) Protein-calorie malnutrition, severe: Code(s): E43 - Unspecified severe protein-calorie malnutrition Status: Acute Assessment and Plan: 06/07/2023: * BMI 16.8, 44.3kg * Dietitian consult * Severe protein calorie malnutrition likely due to poor appetite and intake for the past 3 months, she was noted to have severe subcutaneous fat loss and muscle wasting * Dietitian recommends Ensure compact t.i.d. ordered Subjective Date/time seen: 06/07/23 14:31 Interval history: This is an 87 year old female who presented to the hospital on 06/04/2023 with chief complaint shortness of breath and dyspnea. Patient is a resident of [facility] and they noted her to have increased work of breathing by the detention staff and reported a cough x1 day. Patient's oxygen levels were 88-89% on room air she was placed on 4 L nasal cannula which they increased to 7 L by the time she got to the emergency room. Workup in the hospital inclu
--- NOTE | 2023-06-07 14:31 | PM.IMPN ---
Progress Note: A&P Assessment and Plan (1) Acute hypoxic respiratory failure: Code(s): J96.01 - Acute respiratory failure with hypoxia Status: Acute Assessment and Plan: 06/07/2023: Patient found with an oxygen saturation 88 and 89% on room air, EMS put her on 4 L nasal cannula and by the time she reached the emergency room they increased her to 7 L nasal cannula. Chest x-ray was negative CTA of the chest was negative for PE, showed mild emphysema Echo showing normal LV systolic function with an estimated EF of 65-70%, grade 1 diastolic dysfunction. (2) Acute UTI: Code(s): N39.0 - Urinary tract infection, site not specified Status: Acute Assessment and Plan: 06/07/2023: UA showed 2+ protein, 1+ ketone, 2+ leukocyte, 51 to 100 urine WBCs, 4+ urine bacteria Urine culture showing E coli on final read Patient currently on Rocephin (3) Altered mental status: Qualifiers: Altered mental status type: somnolence Qualified Code(s): R40.0 - Somnolence Code(s): R41.82 - Altered mental status, unspecified Status: Acute Assessment and Plan: 06/07/2023: Head CT was negative for any acute intracranial finding, showed age related changes Altered mental status likely due to acute UTI Sodium level today is 147, no episodes of hypoglycemia, no CO2 retention on ABG Continue neuro checks (4) Acute exacerbation of chronic obstructive pulmonary disease: Code(s): J44.1 - Chronic obstructive pulmonary disease with (acute) exacerbation Status: Chronic Assessment and Plan: 06/07/2023: CTA of the chest showing mild emphysema DuoNeb ordered Continue budesonide Continue Claritin, singular, Flonase (5) Uncontrolled hypertension: Code(s): I10 - Essential (primary) hypertension Status: Chronic Assessment and Plan: 06/07/2023: Initial blood pressure ranging 199/94 to 232/110 Blood pressure ranging 144/52 to 166/69 amlodipine and lisinopril restarted, will increase amlodipine to 10 mg daily Metoprolol 5 mg IV push q.6 hours p.r.n. discontinued Will start hydralazine 10 mg IV push q.8 hours p.r.n. for systolic greater than 160 (6) Hyperglycemia: Code(s): R73.9 - Hyperglycemia, unspecified Status: Acute Assessment and Plan: 06/07/2023: Blood sugars ranging 106 -140 Resolved (7) Hypercalcemia: Code(s): E83.52 - Hypercalcemia Status: Acute Assessment and Plan: 06/07/2023: Calcium level initially 10.4 now down to 8.8 Resolved (8) Protein-calorie malnutrition, severe: Code(s): E43 - Unspecified severe protein-calorie malnutrition Status: Acute Assessment and Plan: 06/07/2023: BMI 16.8, 44.3kg Dietitian consult Severe protein calorie malnutrition likely due to poor appetite and intake for the past 3 months, she was noted to have severe subcutaneous fat loss and muscle wasting Dietitian recommends Ensure compact t.i.d. ordered Subjective Date/time seen: 06/07/23 14:31 Interval history: This is an 87 year old female who presented to the hospital on 06/04/2023 with chief complaint shortness of breath and dyspnea. Patient is a resident of [facility] and they noted her to have increased work of breathing by the long-term staff and reported a cough x1 day. Patient's oxygen levels were 88-89% on room air she was placed on 4 L nasal cannula which they increased to 7 L by the time she got to the emergency room. Workup in the hospital included a chest x-ray which was negative for any acute cardiopulmonary disease. CT of the brain showed moderate nonspecific cerebral white matter disease, likely secondary to chronic small-vessel ischemic disease. Chest CT was negative for PE, showed mild emphysema. Initial labs showed a white blood cell count of 10.4, hemoglobin 10.1, pH was 7.417, pCO2 56.2, PO2 was 156.5, bicarb was 35.4 on the ABG calcium level was 10.4, alk-phos is
[2023-06-07 16:59] LABS: Glucose Point of Care 132 mg/dl (65-105)
[2023-06-07 19:47] LABS: Glucose Point of Care 101 mg/dl (65-105)
[2023-06-08] VITALS (23 sets, daily range): BP systolic 134–197; BP diastolic 60–69; PULSE 65–84; RESP 16–20; TEMP 36.1–36.6; O2SAT 97–100
[2023-06-08] MEDS: IPRATROPIUM 0.5 MG/ALBUTEROL SULFATE 2.5 MG AMPUL.NEB 3 ML INHALATION ×4 (02:16→19:42)
[2023-06-08] MEDS: BUDESONIDE RESPULE NEB 0.5 MG/2 ML AMP INHALATION ×2 (07:27→19:43)
[2023-06-08 07:37] LABS: Basophils Percent Auto 0.1 % (0.2-1.2); Eosinophils Percent Auto 0.1 % (0-4.4); Hematocrit 30.2 % (37.0-47.0); Hemoglobin 8.7 g/dL (12.0-15.0); Immature Granulocyte Absolute 0.33 K/mm3 (0.00-0.031); Immature Granulocyte Percent A 4.7 % (0-0.5); Lymphocytes Absolute Auto 1.75 K/mm3 (0.9-3.2); Mean Corpuscular HGB Conc 28.8 g/dl (32-36); Mean Corpuscular Hemoglobin 25.7 pg (26-34); Mean Corpuscular Volume 89.1 fl (80-100); Mean Platelet Volume 9.2 fl (7.4-10.4); Monocytes Absolute Auto 0.4 K/mm3 (0.1-0.6); Monocytes Percent Auto 5.9 % (2.6-8.5); Neutrophils Absolute Auto 4.5 K/mm3 (1.3-6.7); Neutrophils Percent Auto 64.2 % (45.5-73.1); Platelet Count Result 157 k/mm3 (150-375); Red Blood Count 3.39 M/mm3 (4.2-5.4); Red Cell Distribution Width 15.1 % (11.5-14.5)
[2023-06-08 07:40] LABS: Alanine Aminotransferase 10 U/L (6-35); Albumin Level 2.9 g/dL (3.5-5.1); Alkaline Phosphatase 95 U/L (38-126); Anion Gap 1 mmol/L (4-12); Aspartate Amino Transferase 24 U/L (14-36); Bilirubin,Total 0.5 mg/dL (0.2-1.3); Blood Urea Nitrogen 27 mg/dL (7-17); Calcium 8.4 mg/dL (8.4-10.2); Carbon Dioxide 35 mmol/L (22-30); Chloride 108 mmol/L (98-107); Estimated CRCL calculation 45 ml/min; Estimated Glomerular Filt Rate > 60; Glucose 100 mg/dL (65-110); Potassium 3.5 mmol/L (3.4-5.0); Sodium 144 mmol/L (137-145)
--- NOTE | 2023-06-08 07:46 | P.PNIM_ITS ---
Progress Note: A&P Assessment and Plan (1) Acute hypoxic respiratory failure: Code(s): J96.01 - Acute respiratory failure with hypoxia Status: Acute Assessment and Plan: 06/07/2023: * Patient found with an oxygen saturation 88 and 89% on room air, EMS put her on 4 L nasal cannula and by the time she reached the emergency room they increased her to 7 L nasal cannula. * Chest x-ray was negative * CTA of the chest was negative for PE, showed mild emphysema * Echo showing normal LV systolic function with an estimated EF of 65-70%, grade 1 diastolic dysfunction. 06/08/23: * Patient currently on 3L NC * CXR today revealed emphysema with superimposed mild pulmonary edema in the lower lungs and small bilateral pleural effusion (2) Acute UTI: Code(s): N39.0 - Urinary tract infection, site not specified Status: Acute Assessment and Plan: 06/07/2023: * UA showed 2+ protein, 1+ ketone, 2+ leukocyte, 51 to 100 urine WBCs, 4+ urine bacteria * Urine culture showing E coli on final read * Patient currently on Rocephin 06/08/23: * Rocephin changed to cefdinir (3) Altered mental status: Qualifiers: Altered mental status type: somnolence Qualified Code(s): R40.0 - Somnolence Code(s): R41.82 - Altered mental status, unspecified Status: Acute Assessment and Plan: 06/07/2023: * Head CT was negative for any acute intracranial finding, showed age related changes * Altered mental status likely due to acute UTI * Sodium level today is 147, no episodes of hypoglycemia, no CO2 retention on ABG * Continue neuro checks 06/08/23: * Currently alert and oriented x1 (4) Acute exacerbation of chronic obstructive pulmonary disease: Code(s): J44.1 - Chronic obstructive pulmonary disease with (acute) exacerbation Status: Chronic Assessment and Plan: 06/07/2023: * CTA of the chest showing mild emphysema * DuoNeb ordered * Continue budesonide * Continue Claritin, singular, Flonase 06/08/23: * Continue with current treatment plan (5) Uncontrolled hypertension: Code(s): I10 - Essential (primary) hypertension Status: Chronic Assessment and Plan: 06/07/2023: * Initial blood pressure ranging 199/94 to 232/110 * Blood pressure ranging 144/52 to 166/69 * amlodipine and lisinopril restarted, will increase amlodipine to 10 mg daily * Metoprolol 5 mg IV push q.6 hours p.r.n. discontinued * Will start hydralazine 10 mg IV push q.8 hours p.r.n. for systolic greater than 160 06/08/23: * Blood pressure ranging 168/66 to 197/69 * Discontinued hydralazine p.r.n. * Will start hydralazine 25 mg b.i.d. in addition to her amlodipine and lisinopril (6) Protein-calorie malnutrition, severe: Code(s): E43 - Unspecified severe protein-calorie malnutrition Status: Acute Assessment and Plan: 06/07/2023: * BMI 16.8, 44.3kg * Dietitian consult * Severe protein calorie malnutrition likely due to poor appetite and intake for the past 3 months, she was noted to have severe subcutaneous fat loss and muscle wasting * Dietitian recommends Ensure compact t.i.d. ordered 06/08/23: * No change to current treatment plan Time Spent With Patient Time with patient: Greater than 35 minutes Subjective Date/time seen: 06/08/23 07:46 Interval history: 06/07/23: This is an 87 year old female who presented to the hospital on 06/04/2023 with chief complaint shortness of breath and dyspnea. Patient is a resident of [facility] and
--- NOTE | 2023-06-08 07:46 | PM.IMPN ---
Progress Note: A&P Assessment and Plan (1) Acute hypoxic respiratory failure: Code(s): J96.01 - Acute respiratory failure with hypoxia Status: Acute Assessment and Plan: 06/07/2023: Patient found with an oxygen saturation 88 and 89% on room air, EMS put her on 4 L nasal cannula and by the time she reached the emergency room they increased her to 7 L nasal cannula. Chest x-ray was negative CTA of the chest was negative for PE, showed mild emphysema Echo showing normal LV systolic function with an estimated EF of 65-70%, grade 1 diastolic dysfunction. 06/08/23: Patient currently on 3L NC CXR today revealed emphysema with superimposed mild pulmonary edema in the lower lungs and small bilateral pleural effusion (2) Acute UTI: Code(s): N39.0 - Urinary tract infection, site not specified Status: Acute Assessment and Plan: 06/07/2023: UA showed 2+ protein, 1+ ketone, 2+ leukocyte, 51 to 100 urine WBCs, 4+ urine bacteria Urine culture showing E coli on final read Patient currently on Rocephin 06/08/23: Rocephin changed to cefdinir (3) Altered mental status: Qualifiers: Altered mental status type: somnolence Qualified Code(s): R40.0 - Somnolence Code(s): R41.82 - Altered mental status, unspecified Status: Acute Assessment and Plan: 06/07/2023: Head CT was negative for any acute intracranial finding, showed age related changes Altered mental status likely due to acute UTI Sodium level today is 147, no episodes of hypoglycemia, no CO2 retention on ABG Continue neuro checks 06/08/23: Currently alert and oriented x1 (4) Acute exacerbation of chronic obstructive pulmonary disease: Code(s): J44.1 - Chronic obstructive pulmonary disease with (acute) exacerbation Status: Chronic Assessment and Plan: 06/07/2023: CTA of the chest showing mild emphysema DuoNeb ordered Continue budesonide Continue Claritin, singular, Flonase 06/08/23: Continue with current treatment plan (5) Uncontrolled hypertension: Code(s): I10 - Essential (primary) hypertension Status: Chronic Assessment and Plan: 06/07/2023: Initial blood pressure ranging 199/94 to 232/110 Blood pressure ranging 144/52 to 166/69 amlodipine and lisinopril restarted, will increase amlodipine to 10 mg daily Metoprolol 5 mg IV push q.6 hours p.r.n. discontinued Will start hydralazine 10 mg IV push q.8 hours p.r.n. for systolic greater than 160 06/08/23: Blood pressure ranging 168/66 to 197/69 Discontinued hydralazine p.r.n. Will start hydralazine 25 mg b.i.d. in addition to her amlodipine and lisinopril (6) Protein-calorie malnutrition, severe: Code(s): E43 - Unspecified severe protein-calorie malnutrition Status: Acute Assessment and Plan: 06/07/2023: BMI 16.8, 44.3kg Dietitian consult Severe protein calorie malnutrition likely due to poor appetite and intake for the past 3 months, she was noted to have severe subcutaneous fat loss and muscle wasting Dietitian recommends Ensure compact t.i.d. ordered 06/08/23: No change to current treatment plan Time Spent With Patient Time with patient: Greater than 35 minutes Subjective Date/time seen: 06/08/23 07:46 Interval history: 06/07/23: This is an 87 year old female who presented to the hospital on 06/04/2023 with chief complaint shortness of breath and dyspnea. Patient is a resident of [facility] and they noted her to have increased work of breathing by the custodial staff and reported a cough x1 day. Patient's oxygen levels were 88-89% on room air she was placed on 4 L nasal cannula which they increased to 7 L by the time she got to the emergency room. Workup in the hospital included a chest x-ray which was negative for any acute cardiopulmonary disease. CT of the brain showed moderate nonspecific cerebral white matter disease, likely secondary to chronic small-vessel
[2023-06-08 08:15] LABS: Anisocytosis 1+; Platelet Estimate Adequate (Adequate); Schistocytes None Seen
[2023-06-08 08:38] LABS: Glucose Point of Care 105 mg/dl (65-105)
[2023-06-08] MEDS: CEFDINIR 300 MG CAPSULE PO ×2 (09:11→21:44)
[2023-06-08] MEDS: lisinopriL 20 MG TABLET 40 MG PO (09:12)
[2023-06-08] MEDS: SERTRALINE HCL 50 MG TABLET 100 MG PO (09:12)
[2023-06-08] MEDS: amLODIPine BESYLATE 5 MG TABLET 10 MG PO (09:12)
[2023-06-08] MEDS: MONTELUKAST SODIUM 10 MG TABLET PO (09:13)
[2023-06-08] MEDS: LORATADINE 10 MG TABLET PO (09:13)
[2023-06-08] MEDS: NICOTINE (*PBKC) 14 MG PATCH 1 PATCH TRANSDERM (09:13)
[2023-06-08] MEDS: FAMOTIDINE 20 MG/2 ML VIAL IV PUSH ×2 (09:13→21:44)
[2023-06-08] MEDS: hydrALAZINE HCL 25 MG TABLET PO ×2 (09:13→16:43)
[2023-06-08] MEDS: ENOXAPARIN 40 MG/0.4 ML SYRINGE SUB-Q (09:13)
[2023-06-08] MEDS: IPRATROPIUM NASAL SPRAY 0.06% 15 ML BOTTLE 2 SPRAY NASAL (09:30)
[2023-06-08 12:38] LABS: Glucose Point of Care 100 mg/dl (65-105)
[2023-06-08 16:33] LABS: Glucose Point of Care 185 mg/dl (65-105)
[2023-06-09] VITALS (16 sets, daily range): BP systolic 136–154; BP diastolic 52–74; PULSE 72–92; RESP 16–22; TEMP 36.1–36.8; O2SAT 93–98
[2023-06-09] MEDS: IPRATROPIUM 0.5 MG/ALBUTEROL SULFATE 2.5 MG AMPUL.NEB 3 ML INHALATION ×4 (02:06→20:51)
[2023-06-09 05:07] LABS: Basophils Percent Auto 0.3 % (0.2-1.2); Eosinophils Percent Auto 0.6 % (0-4.4); Hematocrit 33.4 % (37.0-47.0); Hemoglobin 9.4 g/dL (12.0-15.0); Immature Granulocyte Absolute 0.27 K/mm3 (0.00-0.031); Immature Granulocyte Percent A 4.2 % (0-0.5); Lymphocytes Absolute Auto 1.54 K/mm3 (0.9-3.2); Lymphocytes Percent Auto 23.8 % (18.3-44.2); Mean Corpuscular HGB Conc 28.1 g/dl (32-36); Mean Corpuscular Hemoglobin 25.1 pg (26-34); Mean Corpuscular Volume 89.1 fl (80-100); Mean Platelet Volume 9.2 fl (7.4-10.4); Monocytes Absolute Auto 0.3 K/mm3 (0.1-0.6); Monocytes Percent Auto 4.2 % (2.6-8.5); Neutrophils Absolute Auto 4.3 K/mm3 (1.3-6.7); Neutrophils Percent Auto 66.9 % (45.5-73.1); Platelet Count Result 169 k/mm3 (150-375); Red Blood Count 3.75 M/mm3 (4.2-5.4); Red Cell Distribution Width 14.8 % (11.5-14.5); White Blood Count 6.5 K/mm3 (4.5-10.0)
[2023-06-09 05:19] LABS: Alanine Aminotransferase 11 U/L (6-35); Albumin Level 3.1 g/dL (3.5-5.1); Alkaline Phosphatase 110 U/L (38-126); Anion Gap 3 mmol/L (4-12); Aspartate Amino Transferase 22 U/L (14-36); Bilirubin,Total 0.5 mg/dL (0.2-1.3); Blood Urea Nitrogen 23 mg/dL (7-17); Calcium 8.6 mg/dL (8.4-10.2); Carbon Dioxide 37 mmol/L (22-30); Chloride 104 mmol/L (98-107); Estimated CRCL calculation 35 ml/min; Estimated Glomerular Filt Rate > 60; Glucose 102 mg/dL (65-110); Potassium 3.3 mmol/L (3.4-5.0); Sodium 144 mmol/L (137-145)
[2023-06-09 05:47] LABS: Platelet Estimate Adequate (Adequate)
[2023-06-09 05:48] LABS: Anisocytosis 1+; Hypochromasia 1+; Ovalocytes 1+; Schistocytes None Seen
[2023-06-09 07:57] LABS: Glucose Point of Care 100 mg/dl (65-105)
[2023-06-09] MEDS: BUDESONIDE RESPULE NEB 0.5 MG/2 ML AMP INHALATION ×2 (08:16→20:51)
[2023-06-09] MEDS: ENOXAPARIN 40 MG/0.4 ML SYRINGE SUB-Q (09:05)
[2023-06-09] MEDS: lisinopriL 20 MG TABLET 40 MG PO (09:06)
[2023-06-09] MEDS: FAMOTIDINE 20 MG/2 ML VIAL IV PUSH ×2 (09:06→20:34)
[2023-06-09] MEDS: LORATADINE 10 MG TABLET PO (09:07)
[2023-06-09] MEDS: CEFDINIR 300 MG CAPSULE PO ×2 (09:07→20:34)
[2023-06-09] MEDS: MONTELUKAST SODIUM 10 MG TABLET PO (09:07)
[2023-06-09] MEDS: hydrALAZINE HCL 25 MG TABLET PO ×2 (09:07→17:07)
[2023-06-09] MEDS: SERTRALINE HCL 50 MG TABLET 100 MG PO (09:07)
[2023-06-09] MEDS: amLODIPine BESYLATE 5 MG TABLET 10 MG PO (09:07)
[2023-06-09] MEDS: NICOTINE (*PBKC) 14 MG PATCH 1 PATCH TRANSDERM (09:27)
[2023-06-09 11:08] LABS: Glucose Point of Care 141 mg/dl (65-105)
[2023-06-09] MEDS: IPRATROPIUM NASAL SPRAY 0.06% 15 ML BOTTLE 2 SPRAY NASAL ×2 (12:06→20:34)
--- NOTE | 2023-06-09 12:37 | PCPTNOTE ---
Attempted to see patient for Physical Therapy this afternoon. Patient was wanting to finish her lunch. RN notified and staff will assist with feeding.
--- NOTE | 2023-06-09 14:31 | PCPTNOTE ---
Patient refused treatment this session due to low back pain. Educated patient on the importance of therapy. Patient continued to refuse and reported not today. Family in room to give encouragement as well.
--- NOTE | 2023-06-09 14:53 | PC.NURSE ---
On 06/09/23, the student, [ Chantelle Trinidad], provided care and completed [facility] documentation on this patient. I have reviewed the student's documentation and agree with the findings.
--- NOTE | 2023-06-09 14:55 | PM.IMPN ---
Progress Note: A&P Assessment and Plan (1) Acute hypoxic respiratory failure: Code(s): J96.01 - Acute respiratory failure with hypoxia Status: Acute (2) Acute UTI: Code(s): N39.0 - Urinary tract infection, site not specified Status: Acute (3) Altered mental status: Qualifiers: Altered mental status type: somnolence Qualified Code(s): R40.0 - Somnolence Code(s): R41.82 - Altered mental status, unspecified Status: Acute (4) Acute exacerbation of chronic obstructive pulmonary disease: Code(s): J44.1 - Chronic obstructive pulmonary disease with (acute) exacerbation Status: Chronic (5) Uncontrolled hypertension: Code(s): I10 - Essential (primary) hypertension Status: Chronic (6) Protein-calorie malnutrition, severe: Code(s): E43 - Unspecified severe protein-calorie malnutrition Status: Acute Plan 87-year-old female with past medical history recent hip replacement COPD, hyperlipidemia, depression and dementia who presented to the ER from [facility] via EMS due to difficulty breathing. 1. Acute on chronic hypoxic respiratory failure: ?CTA of the chest was done which was negative for PE or any other acute process. Continue with O2 support Continue with DuoNeb, budesonide Status post steroid Continue with Omnicef Vancomycin has been discontinued Continue with Singulair 2. Hypertension: Continue with Norvasc, hydralazine, and lisinopril 3. Diabetes mellitus: Continue with low-dose sliding scale insulin Blood glucose check t.i.d. a.c. and HS 4. DVT prophylaxis: Lovenox 5. Code status: DNR 6. Disposition: Await placement Time Spent With Patient Time with patient: 15 - 25 minutes Subjective Date/time seen: 06/09/23 14:56 Interval history: no acute events overnight Review of Systems Review of Systems: All systems reviewed & are unremarkable except as noted in HPI and below Exam Narrative: General: In no acute distress, on O2 support Head: atraumatic, no encephalopathy Eyes: EOMI, PERRLA, sclera clear ENT: moist mucous membranes, nasal passages clear Neck: supple, no JVD, no adenopathy, trachea midline Cardiac: Normal S1 and S2. RRR, No murmur, gallops or friction rubs, peripheral pulses intact. Respiratory: Decreased breath sounds Gastrointestinal: soft, non-distended, non-tender, normoactive bowel sounds. : voiding without difficulty. Extremities: moves all extremities well, no edema Skin: clean, dry, intact. No wounds or lesions. Neuro: Alert and oriented x1, cranial nerves intact, no neuro deficits. Psych: normal mood, normal affect, interactive Objective Data Vital Signs Vital Signs: Vital Signs - 24 hr 06/08/23 16:12 06/08/23 16:00 06/08/23 19:43 Temperature 97.7 F Pulse Rate 84 81 Respiratory Rate 18 Blood Pressure 136/65 Pulse Oximetry 98 99 Oxygen Delivery Nasal Cannula Oxygen Flow Rate 2 06/08/23 19:43 06/08/23 19:55 06/08/23 21:50 Temperature Pulse Rate 79 78 78 Respiratory Rate 16 16 16 Blood Pressure Pulse Oximetry 99 Oxygen Delivery Nasal Cannula Oxygen Flow Rate 3 06/08/23 20:00 06/08/23 23:11 06/09/23 00:00 Temperature 97.3 F L Pulse Rate 81 81 78 Respiratory Rate 18 Blood Pressure 150/64 H Pulse Oximetry 98 Oxygen Delivery Oxygen Flow Rate 06/09/23 02:06 06/09/23 04:00 06/09/23 08:17 Temperature Pulse Rate 75 76 Respiratory Rate 16 Blood Pressure Pulse Oximetry 93 Oxygen Delivery Nasal Cannula Oxygen Flow Rate 2 06/09/23 08:17 06/09/23 08:00 06/09/23 08:00 Temperature 97.6 F Pulse Rate 78 76 76 Respiratory Rate 20 20 22 H Blood Pressure 152/71 H Pulse Oximetry 98 98 Oxygen Delivery Nasal Cannula Oxygen Flow Rate 3 06/09/23 08:00 06/09/23 12:00 06/09/23 13:58 Temperature 98.2 F Pulse Rate 84 92 81 Respiratory Rate 22 H 18 Blood Pressure 139/52 L Pulse Oximetr
--- NOTE | 2023-06-09 15:10 | PC.NURSE ---
On 06/09/23, the student, [Chantelle ], provided care and completed [facility] documentation on this patient. I have reviewed the student's documentation and agree with the findings.
[2023-06-09 16:25] LABS: Glucose Point of Care 96 mg/dl (65-105)
[2023-06-09] MEDS: POTASSIUM CHLORIDE 20 MEQ PACKET (FOR LIQUID) 40 MEQ PO (17:07)
[2023-06-09 20:09] LABS: Glucose Point of Care 111 mg/dl (65-105)
[2023-06-10] VITALS (11 sets, daily range): BP systolic 132–157; BP diastolic 52–77; PULSE 64–88; RESP 18–24; TEMP 36.4–36.6; O2SAT 95–100
[2023-06-10] MEDS: IPRATROPIUM 0.5 MG/ALBUTEROL SULFATE 2.5 MG AMPUL.NEB 3 ML INHALATION ×3 (02:30→14:02)
[2023-06-10 04:34] LABS: Hematocrit 31.9 % (37.0-47.0); Hemoglobin 9.1 g/dL (12.0-15.0); Mean Corpuscular HGB Conc 28.5 g/dl (32-36); Mean Corpuscular Hemoglobin 25.3 pg (26-34); Mean Corpuscular Volume 88.6 fl (80-100); Mean Platelet Volume 9.5 fl (7.4-10.4); Platelet Count Result 163 k/mm3 (150-375)
[2023-06-10 05:02] LABS: Band Neutrophils Percent 2 % (0-6); Eosinophils Absolute Manual 0.21 K/mm3 (0.02-0.50); Eosinophils Percent Manual 3 % (0-4); Lymphocytes Absolute Manual 0.91 K/mm3 (1.1-4.5); Microcytosis 1+ (NORMAL); Myelocytes Percent 2 %; Neutrophils Absolute Manual 5.74 K/mm3 (1.7-7.2); Neutrophils Percent Manual 80 % (46-73); Platelet Estimate Decreased (Adequate); Total Cells Counted 100
[2023-06-10 05:03] LABS: Hypochromasia 1+; Schistocytes None Seen; Smudge Cells FEW
[2023-06-10] MEDS: BUDESONIDE RESPULE NEB 0.5 MG/2 ML AMP INHALATION (07:36)
--- NOTE | 2023-06-10 08:01 | PM.IMPN ---
Progress Note: A&P Assessment and Plan (1) Acute hypoxic respiratory failure: Code(s): J96.01 - Acute respiratory failure with hypoxia Status: Acute (2) Acute exacerbation of chronic obstructive pulmonary disease: Code(s): J44.1 - Chronic obstructive pulmonary disease with (acute) exacerbation Status: Chronic (3) Abnormal finding on urinalysis: Code(s): R82.90 - Unspecified abnormal findings in urine Status: Acute (4) Altered mental status: Qualifiers: Altered mental status type: somnolence Qualified Code(s): R40.0 - Somnolence Code(s): R41.82 - Altered mental status, unspecified Status: Acute (5) Uncontrolled hypertension: Code(s): I10 - Essential (primary) hypertension Status: Chronic (6) Hyperglycemia: Code(s): R73.9 - Hyperglycemia, unspecified Status: Acute (7) Hypercalcemia: Code(s): E83.52 - Hypercalcemia Status: Acute (8) Protein-calorie malnutrition, severe: Code(s): E43 - Unspecified severe protein-calorie malnutrition Status: Acute Plan 87-year-old female with history of COPD recent hip fracture repaired at outside hospital approximately 3 weeks ago currently at the rehab facility presented to the ER with shortness of breath. She was not on oxygen prior to her hip repair however since discharged to her rehab facility she has been on supplemental oxygen. Family noted continued worsening of the shortness of breath over the past few days with productive cough. She was receiving nebulizer treatment in our facility without improvement patient started to get more confused from her baseline appear to be hallucinating and hence present to the ED for further treatment. Patient desaturated prior to EMS arrival. Laboratory workup in the ER showed white cell count of 10.4 hemoglobin stable at 10.1 electrolytes and creatinine were within normal limit. BNP was elevated at 8110. Troponin mildly elevated 0.037. COVID influenza RSV was negative. Chest x-ray was negative for acute process. She required high-flow oxygen via nasal cannula in the ER. CTA of the chest was done which was negative for PE or any other acute process. She had evidence of UTI. Nasal MRSA PCR was negative. Lactate was normal at 1.4. VBG 7.41/56/156/35. Acute hypoxic respiratory failure likely due to COPD exacerbation on scheduled breathing treatment and was started on Solu Medrol. Oxygen requirement has continued to improve since hospitalization. Switched Solu-Medrol to oral prednisone. Will discontinue vancomycin IV as nasal MRSA is negative. Prednisone has been tapered off on oral cefdinir until 06/12/2023 UTI and drip empirically treated with Rocephin. Urine culture pending growing oxidase negative g negative bacillus. Altered mental status no evidence of CO2 retention. IV hydration started. Does have elevated BNP does not appear to be volume overload. Echocardiogram EF 65-70% grade 1 diastolic dysfunction no significant valvular abnormality Troponin elevation mild with flat trend. Hypertension accelerated on p.r.n. antihypertensive. Takes lisinopril at home which she is currently on. Hydralazine p.r.n.. Add amlodipine. Blood pressure optimal Mildly hyperglycemic on presentation A1c was 5.2 Mild anemia likely postoperative no signs of bleeding Hypokalemia replace and monitor Protein calorie mild nutrition hand cutter to see Code status: DNR/DNI per ER documentation Disposition plan to be transferred to rehab insurance authorization pending Subjective Date/time seen: 06/10/23 08:01 Interval history: Events noted. She is awaiting placement. Oxygen requirement down to 2 L by nasal cannula. Review of Systems Review of Systems: All systems reviewed & are unremarkable except as noted in HPI and below Exam Narrative: General: In no acute distress, on O2 support Head: atraumatic, no encephalopathy Eyes: EOMI, PERRLA, scler
--- NOTE | 2023-06-10 08:56 | PCNFU ---
Nutrition Follow-Up Complete: Severe protein calorie malnutrition related to inadequate energy intake as evidenced by family report of poor appetite and intake for about 3 months, noted low BMI of 17.9, and NFPE findings for severe subcutaneous fat loss (cheeks, bicep) and severe muscle wasting (baptism, clavicle) as well as reported weight loss. PO intake 50% or greater for meals and supplements - Not meeting goal. Continue with same goal Goal: Pt current nutrition is Puree level 4 diet, heart healthy, Ensure Compact TID for additional 220 kcal and 9 g protein each. Nutrition recommendation: No new nutrition recommendations. Continue with same orders. Last recorded weight is 41.6 kg. Bowel Motility: Bowel movements not charted Labs Reviewed: Hgb 9.4, Hct 33.4, Alb 3.1, K+ 3.3, BUN 23 Meds Noted: Lovenox, Zofran Skin: No pressure injuries Additional Notes: Appetite remains poor which is baseline according to family. No weight loss. Continue with current nutrition care plan Monitor intake, wt, labs. Follow up in 5 days.
[2023-06-10 09:16] LABS: Glucose Point of Care 91 mg/dl (65-105)
[2023-06-10] MEDS: CEFDINIR 300 MG CAPSULE PO (09:24)
[2023-06-10] MEDS: MONTELUKAST SODIUM 10 MG TABLET PO (09:24)
[2023-06-10] MEDS: amLODIPine BESYLATE 5 MG TABLET 10 MG PO (09:24)
[2023-06-10] MEDS: lisinopriL 20 MG TABLET 40 MG PO (09:24)
[2023-06-10] MEDS: hydrALAZINE HCL 25 MG TABLET PO (09:24)
[2023-06-10] MEDS: FAMOTIDINE 20 MG/2 ML VIAL IV PUSH (09:24)
[2023-06-10] MEDS: SERTRALINE HCL 50 MG TABLET 100 MG PO (09:25)
[2023-06-10] MEDS: ENOXAPARIN 40 MG/0.4 ML SYRINGE SUB-Q (09:25)
[2023-06-10] MEDS: NICOTINE (*PBKC) 14 MG PATCH 1 PATCH TRANSDERM (09:26)
[2023-06-10] MEDS: LORATADINE 10 MG TABLET PO (09:37)
[2023-06-10] MEDS: IPRATROPIUM NASAL SPRAY 0.06% 15 ML BOTTLE 2 SPRAY NASAL (09:43)
--- NOTE | 2023-06-10 10:34 | PC.NURSE ---
Report given to Romi FARRELL on [facility].
--- NOTE | 2023-06-10 11:00 | PC.NURSE ---
This patient, Rahat Nj, was received from [facility] on 06/10/23 at 1100. Patient/family oriented to unit policies and routines. Report received from Johnna Stevens
[2023-06-10 12:14] LABS: Glucose Point of Care 109 mg/dl (65-105)
--- NOTE | 2023-06-10 12:19 | PM.DS ---
DS: Admitting Diagnosis Discharge Date 06/10/2023 Admitting Diagnosis Altered mental status DS: Discharge Diagnosis Discharge Diagnosis (1) Acute hypoxic respiratory failure: Code(s): J96.01 - Acute respiratory failure with hypoxia Status: Acute (2) Acute exacerbation of chronic obstructive pulmonary disease: Code(s): J44.1 - Chronic obstructive pulmonary disease with (acute) exacerbation Status: Chronic (3) Abnormal finding on urinalysis: Code(s): R82.90 - Unspecified abnormal findings in urine Status: Acute (4) Altered mental status: Qualifiers: Altered mental status type: somnolence Qualified Code(s): R40.0 - Somnolence Code(s): R41.82 - Altered mental status, unspecified Status: Acute (5) Uncontrolled hypertension: Code(s): I10 - Essential (primary) hypertension Status: Chronic (6) Hyperglycemia: Code(s): R73.9 - Hyperglycemia, unspecified Status: Acute (7) Hypercalcemia: Code(s): E83.52 - Hypercalcemia Status: Acute (8) Protein-calorie malnutrition, severe: Code(s): E43 - Unspecified severe protein-calorie malnutrition Status: Acute DS: Summary Hospital Course Hospital Course: 87-year-old female with history of COPD recent hip fracture repaired at outside hospital approximately 3 weeks ago currently at the rehab facility presented to the ER with shortness of breath.? She was not on oxygen prior to her hip repair however since discharged to her rehab facility she has been on supplemental oxygen.? Family noted continued worsening of the shortness of breath over the past few days with productive cough.? She was receiving nebulizer treatment in our facility without improvement patient started to get more confused from her baseline appear to be hallucinating and hence present to the ED for further treatment. Patient desaturated prior to EMS arrival.? Laboratory workup in the ER showed white cell count of 10.4 hemoglobin stable at 10.1 electrolytes and creatinine were within normal limit.? BNP was elevated at 8110.? Troponin mildly elevated 0.037.? COVID influenza RSV was negative.? Chest x-ray was negative for acute process.? She required high-flow oxygen via nasal cannula in the ER.? CTA of the chest was done which was negative for PE or any other acute process.? She had evidence of UTI.? Nasal MRSA PCR was negative.? Lactate was normal at 1.4.? VBG 7.41/56/156/35. Acute hypoxic respiratory failure likely due to COPD exacerbation on scheduled breathing treatment and was started on Solu Medrol.? Oxygen requirement has continued to improve since hospitalization.? Switched Solu-Medrol to oral prednisone.? discontinued vancomycin IV as nasal MRSA is negative.? Prednisone has been tapered off on oral cefdinir until 06/12/2023 UTI and drip empirically treated with Rocephin.? Urine culture with E coli. Altered mental status no evidence of CO2 retention.? IV hydration started.? Does have elevated BNP does not appear to be volume overload.? Echocardiogram EF 65-70% grade 1 diastolic dysfunction no significant valvular abnormality Troponin elevation mild with flat trend.? Hypertension accelerated on p.r.n. antihypertensive.? Takes lisinopril at home which she is currently on.? Hydralazine p.r.n..? Add amlodipine.? 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
[2023-06-10 17:05] LABS: Glucose Point of Care 134 mg/dl (65-105)
== END 2023-06-10 18:40 | DRG 190 ==
LOC: ANHED 19:06 → ANHIMU 22:29 → ANH2MED 06-10 12:19 → ANHIMU 06-13 15:04
PROVIDERS: Internal Medicine; Nurse Practitioner Acute Care; Student in an Organized Health Care Education/Training Program; Admitting Provider Internal Medicine; Emergency Provider Emergency Medicine; PCP Family Medicine; Visit Provider Internal Medicine
DX: J44.1 Chronic obstructive pulmonary disease with (acute) exacerbation (principal); E43 Unspecified severe protein-calorie malnutrition; J96.21 Acute and chronic respiratory failure with hypoxia; N39.0 Urinary tract infection, site not specified; G93.40 Encephalopathy, unspecified; Z68.1 Body mass index [BMI] 19.9 or less, adult; I10 Essential (primary) hypertension; E83.52 Hypercalcemia; E87.6 Hypokalemia; E55.9 Vitamin D deficiency, unspecified; F32.A Depression, unspecified; F03.90 Unspecified dementia, unspecified severity, without behavioral disturbance, psychotic disturbance, mood disturbance, and anxiety; S72.001D Fracture of unspecified part of neck of right femur, subsequent encounter for closed fracture with routine healing; Z96.641 Presence of right artificial hip joint; B96.20 Unspecified Escherichia coli [E. coli] as the cause of diseases classified elsewhere
CPT/HCPCS: 36415; 70450; 71045; 71275; 80048; 80053; 81001; 82803; 82948; 83036; 83605; 83735; 83880; 84484; 85025; 85027; 87040; 87077; 87086; 87088; 87186; 87637; 87641; 92610; 93005; 93306; 94640; 96365; 96367; 96375; 97110; 97161; 97165; 97530; 99291; A9270; J0360; J0456; J0692; J0696; J1650; J2405; J2919; J3370; J7030; Q9967